=== PATIENT | female | born 1940 | race Native Hawaiian/Other Pacific Islander ===

== ENCOUNTER 2019-01-14 20:30 | Emergency (ER) | payer OTHER ==
[~2019-01-14] VITALS: Ht 149.9 cm; Wt 54.9 kg
[2019-01-14 20:30] VITALS: BP 144/63; TEMP 97.2
[2019-01-14] MEDS ORDERED: CITALOPRAM20 M1 PO (21:22)
[2019-01-14] MEDS ORDERED: HYDROCHLOROT12.5 M1 PO (21:22)
[2019-01-14] MEDS ORDERED: LORA0.5T17 PO (21:23)
== END 2019-01-15 00:54 | disposition other institution (70) ==
LOC: EDBD 20:46 → ED 20:46
DX: G30.9 Alzheimer's disease, unspecified (principal); F02.81 Dementia in other diseases classified elsewhere, unspecified severity, with behavioral disturbance; Z91.83 Wandering in diseases classified elsewhere; Z04.6 Encounter for general psychiatric examination, requested by authority
CPT/HCPCS: 99285